=== PATIENT | female | born 2000 ===

== ENCOUNTER 2019-08-05 17:16 | Emergency (ER) | payer MEDICAID ==
--- NOTE | 2019-08-05 18:23 | Emergency Department Report ---
Blank Doc - Documentation Documentation: 19-year-old female that presents with hematuria and dysuria x2 days. This initial assessment/diagnostic orders/clinical plan/treatment(s) is/are subject to change based on patient's health status, clinical progression and re- assessment by fellow clinical providers in the ED. Further treatment and workup at subsequent clinical providers discretion. Patient/guardians urged not to elope from the ED as their condition may be serious if not clinically assessed and managed. Initial orders include: 1- Patient sent to [facility] for further evaluation and treatment 2- UA
[2019-08-05] MEDS ORDERED: ACETAMINOPHEN 500 MG TAB PO ONE (19:07)
[2019-08-05 19:21] LABS: Bacteria,Urine 1+ /HPF (Negative); Bilirubin,Urine NEG (Negative); Blood,Urine LG (Negative); Color,Urine Yellow (Yellow); Mucus,Urine FEW /HPF; Urobilinogen,Urine < 2.0 mg/dL (<2.0)
[2019-08-05 19:23] LABS: HCG Qualitative,Urine Positive (Negative)
[2019-08-05 19:24] LABS: RBC,Urine > 182.0 /HPF (0.0-6.0)
--- NOTE | 2019-08-05 20:05 | Ultrasound Report ---
OB Ultrasound HISTORY: Vaginal bleeding, pain. TECHNIQUE: Grayscale and color Doppler imaging performed. COMPARISON: None FINDINGS: Uterus measures 11.7 x 6.8 x 0.4 cm. There is a single viable intrauterine gestation with c rown-rump length of 3.8 cm corresponding with an EGA of 10 weeks and 5 days. Heart rate is 182 bpm. Ovaries are both normal in size with bilateral complex-appearing cysts which are most likely function al. No pelvic free fluid. IMPRESSION: Single viable intrauterine gestation as above. Signer Name: Joel Nunez MD Signed: 08/05/2019 8:01 PM Workstation Name: [id number]
[2019-08-05 20:49] LABS: Basophils % (Auto) 0.3 % (0.0-1.8); Eosinophils # (Auto) 0.1 K/mm3 (0.0-0.4); Eosinophils % (Auto) 0.7 % (0.0-4.3); Hematocrit 35.9 % (30.3-42.9); Hemoglobin 12.2 gm/dl (10.1-14.3); Lymphocytes # (Auto) 2.5 K/mm3 (1.2-5.4); Mean Corpuscular HGB Conc 34 % (30-34); Mean Corpuscular Volume 81 fl (79-97); Monocytes # (Auto) 0.7 K/mm3 (0.0-0.8); Monocytes % (Auto) 4.8 % (0.0-7.3); Platelet Count 260 K/mm3 (140-440); Red Blood Count 4.46 M/mm3 (3.65-5.03); Red Cell Distribution Width 13.7 % (13.2-15.2)
[2019-08-05 21:06] LABS: Alanine Aminotransferase 11 units/L (7-56); Albumin 4.1 g/dL (3.9-5); BUN/Creatinine Ratio 23; Blood Urea Nitrogen 9 mg/dL (7-17); Calcium 9.5 mg/dL (8.4-10.2); Hemolysis Index 2
[2019-08-05] MEDS ORDERED: LIDOCAINE-MPF (1%) 10 MG/1 ML VIAL 5 ML INFILTRATI ONE (21:37)
--- NOTE | 2019-08-05 21:38 | Emergency Department Report ---
ED Female HPI - General Chief complaint: Urogenital-Female Stated complaint: BLOOD IN URINE Time Seen by Provider: 08/05/19 18:22 Source: patient Mode of arrival: Ambulatory Limitations: No Limitations - History of Present Illness Initial comments: Patient is a A0 19-year-old female who is approximately 9 weeks gestation who presents to the ED with complaint of acute onset persistent dysuria, urinary frequency and urgency, suprapubic pain and pressure with intermittent vaginal spotting and low back pain for the last 12 hours. Patient denies fever, chills, nausea, vomiting, chest pain, shortness of breath, vaginal discharge, heavy lifting or traumatic injury or syncope. MD Complaint: vaginal bleeding, dysuria, pelvic pain, other (pelvic pressure with hematuria) -: Sudden, hour(s) (12) Location: suprapubic, other (vginal) Radiation: non-radiating Severity: severe Severity scale (0 -10): 7 Quality: cramping, aching Consistency: constant Improves with: none Worsens with: urination Are you Now?: Yes Last Menstrual Period: 05/22/19 EDC: 02/26/20 Associated Symptoms: denies other symptoms, vaginal bleeding, abdominal pain, dysuria, hematuria. denies: nausea/vomiting, fever/chills, headaches, loss of appetite, rash, seizure, shortness of breath, syncope, weakness, other - Related Data Sexually active: Yes : 2 Para: 1 A: 0 Previous Rx's Medication Instructions Recorded Last Taken Type cephALEXin [Keflex] 500 mg PO Q6HR #40 capsule 08/05/19 Unknown Rx Allergies Allergy/AdvReac Type Severity Reaction Status Date / Time No Known Allergies Allergy Unverified 08/05/19 17:22 ED Review of Systems ROS: Stated complaint: BLOOD IN URINE Other details as noted in HPI Constitutional: denies: chills, fever Eyes: denies: eye pain, eye discharge, vision change ENT: denies: ear pain, throat pain Respiratory: denies: cough, shortness of breath, wheezing Cardiovascular: denies: chest pain, palpitations Endocrine: no symptoms reported Gastrointestinal: abdominal pain (suprapubic pressure). denies: nausea, vomiting, diarrhea, hematemesis Genitourinary: urgency, dysuria, frequency, hematuria, abnormal menses (vaginal spotting). denies: discharge Musculoskeletal: back pain (lower). denies: joint swelling, arthralgia Skin: denies: rash, lesions Neurological: denies: headache, weakness, paresthesias Psychiatric: denies: anxiety, depression Hematological/Lymphatic: denies: easy bleeding, easy bruising ED Past Medical Hx - Past Medical History Previous Medical History?: Yes Additional medical history: Vaginal delivery, Blood in urine - Surgical History Past Surgical History?: No - Social History Smoking Status: Never Smoker Substance Use Type: None - Medications Home Medications: Home Medications Medication Instructions Recorded Confirmed Last Taken Type cephALEXin [Keflex] 500 mg PO Q6HR #40 capsule 08/05/19 Unknown Rx ED Physical Exam - General Limitations: No Limitations General appearance: alert, in no apparent distress - Head Head exam: Present: atraumatic, normocephalic, normal inspection - Eye Eye exam: Present: normal appearance, PERRL, EOMI Pupils: Present: normal accommodation - ENT ENT exam: Present: normal exam, normal orophraynx, mucous membranes moist, TM's normal bilaterally, normal external ear exam - Neck Neck exam: Present: normal inspection, full ROM - Respiratory Respiratory exam: Present: normal lung sounds bilaterally. Absent: respiratory distress, wheezes, rales, rhonchi, chest wall tenderness, accessory muscle use, decreased breath sounds - Cardiovascular Cardiovascular Exam: Present: normal rhythm, tachycardia, normal heart sounds. Absent: systolic murmur, diastolic murmur, rubs, gallop - GI/Abdominal GI/Abdominal exam: Present: soft, normal bowel sounds. Absent: tenderness, guarding, hyperactive bowel sounds, hypoactive bowel sounds, organomegaly - Bi-manual exam: Present: other (Deferred pelvic exam, patient not keen on it) - Extremities Exam Extremities exam: Present: normal inspection, full ROM, normal capillary refill - Back Exam Back exam: Present: normal inspection, full ROM, tenderness (Palpable lumbosacral paraspinal musculoskeletal tenderness), muscle spasm, paraspinal tenderness - Neurological Exam Neurological exam: Present: alert, oriented X3, CN II-XII intact, normal gait, reflexes normal - Psychiatric Psychiatric exam: Present: normal affect, normal mood - Skin Skin exam: Present: warm, dry, intact, normal color. Absent: rash ED Course Vital Signs 08/05/19 17:25 Temperature 98.1 F Pulse Rate 101 H Respiratory 20 Rate Blood Pressure 112/73 O2 Sat by Pulse 99 Oximetry ED Medical Decision Making - Lab Data Result diagrams: 08/05/19 20:40 08/05/19 20:40 - Radiology Data Radiology results: report reviewed, image reviewed Findings [facility] [address] [place] [address] Ultrasound Report Signed Patient: RODGER COKER MR #: [id number] : 2000 Acct:[id number] Age/Sex: 19 / F ADM Date: 08/05/19 Loc: ED Attending Dr: Ordering Physician: DAIJA LEE Date of Service: 08/05/19 Procedure(s): US OB <= 14 weeks fetus Accession Number(s): [id number] cc: DAIJA LEE OB Ultrasound HISTORY: Vaginal bleeding, pain. TECHNIQUE: Grayscale and color Doppler imaging performed. COMPARISON: None FINDINGS: Uterus measures 11.7 x 6.8 x 0.4 cm. There is a single viable intrauterine gestation with crown-rump length of 3.8 cm corresponding with an EGA of 10 weeks and 5 days. Heart rate is 182 bpm. Ovaries are both normal in size with bilateral complex-appearing cysts which are most likely functional. No pelvic free fluid. IMPRESSION: Single viable intrauterine gestation as above. Signer Name: Joel Nunez MD Signed: 08/05/2019 8:01 PM Workstation Name: [id number] Transcribed By: JW Dictated By: Joel Nunez MD Electronically Authenticated By: Joel Nunez MD Signed Date/Time: 08/05/192000 DD/ 58 - Medical Decision Making This is a 19--old female who is approximately 9 weeks gestation and presents to the ED with complaint of suprapubic pressure, hematuria, urinary frequency and urgency, dysuria, vaginal spotting and low back pain. In the ED, patient is a oriented 3 and is not in distress. Patient was treated for pain in the ED and lab test results show acute leukocytosis of 13,800, mild hyponatremia of 133 [place] [address].0. Urinalysis shows significant urinary tract infection with WBCs of 151 and significantly elevated leukocyte esterase levels. Patient was also treated in the ED with Rocephin 1 g intramuscular injectio. Transvaginal ultrasound shows a single viable intrauterine gestation with crown-rump length of 3.8 cm corresponding with an EGA of 10 weeks and 5 days. Heart rate is 182 bpm. Patient was discharged home on oral antibiotics for UTI and was advised to maintain a complete pelvic rest, and take medications, and follow-up with her primary care physician or [employer] physician in 5-7 days for reevaluation. Patient was also advised to return to the ED immediately if symptoms get worse. - Differential Diagnosis Threatened miscarriage; UTI; Ovarian cysts; Subchorionic bleed Critical care attestation.: If time is entered above; I have spent that time in minutes in the direct care of this critically ill patient, excluding procedure time. ED Disposition Clinical Impression: Threatened miscarriage, Acute urinary tract infection Abdominal pain in Qualifiers: Trimester: first trimester Qualified Code(s): O26.891 - Other specified related conditions, first trimester Disposition: TO HOME OR SELFCARE Is pt being admited?: No Does the pt Need Aspirin: No Condition: Stable Instructions: Threatened Miscarriage (ED), Urinary Tract Infection in Women (ED), Abdominal Pain in (ED) Additional Instructions: Maintain a complete pelvic rest, no heavy lifting or sexual activity, and follow-up with the [employer] physician in 5-7 days for reevaluation. Return to the ED immediately if symptoms get worse. Prescriptions: cephALEXin [Keflex] 500 mg PO Q6HR #40 capsule Referrals: SHERON NARAYAN MD [Primary Care Provider] - 3-5 Days Forms: Work/School Release Form(ED) Time of Disposition: 21:37 Print Language: ESTONIAN
[2019-08-05 23:22] VITALS: BP 118/67
== END 2019-08-05 23:22 | disposition home or self-care (01) ==
LOC: ED 17:16
DX: O20.0 Threatened abortion (principal); O23.41 Unspecified infection of urinary tract in pregnancy, first trimester; Z3A.09 9 weeks gestation of pregnancy
CPT/HCPCS: 36415; 76801; 80053; 81001; 81025; 84702; 85025; 86900; 86901; 96372; 99284; J0696